=== PATIENT | male | born 1940 | race Caucasian/White ===

== ENCOUNTER 2017-08-16 11:40 | Inpatient (IN) | payer MEDICARE, BC ==
[~2017-08-16] VITALS: Ht 195.6 cm; Wt 115.0 kg
[~2017-08-16 11:40] MED LIST: ANTIVERT 25MG25 MG PO; ASPIRIN 32325 MG/TAB PO; FLOMAX 0.40.4 MG/CAP PO; GLUCOSAMINE PO; MIDRIN CAPSULE1 CAP PO; MVI; NORVASC 5MG5 MG/TAB PO; Norvasc PO; PHENERGAN 25 TA25 MG PO; PHENERGAN W/CO120 M1 PO; PRILOSEC 20MG20 MG PO; TAMIFLU 75MG75 MG PO; TOPROL XL 25MG25 MG PO; TYLENOL 325MG325 MG PO; XARELTO10 MG PO; ZANTAC; ZITHROMAX500 M2 PO
[2017-10-17] MEDS ORDERED: NORVASC 5MG5 MG/TAB PO (09:20)
[2017-10-17] MEDS ORDERED: FLOMAX 0.40.4 MG/CAP PO (09:20)
[2017-10-17] MEDS ORDERED: ASPI325T6 PO (09:21)
[2017-10-17] MEDS ORDERED: TOPROL XL 50MG50 MG PO (09:21)
[2017-10-17] MEDS ORDERED: TURMERIC500 MG PO (09:22)
[2017-10-17] MEDS ORDERED: OMEGA-3 1000 MG1 CAP PO (09:22)
[2017-10-18] VITALS (11 sets, daily range): BP systolic 95–140; BP diastolic 45–74; PULSE 45–71; TEMP 97.2–98.4
[2017-10-19 00:41] VITALS: BP 120/58; PULSE 60; TEMP 98.4
[2017-10-19 04:15] VITALS: BP 125/58; PULSE 56; TEMP 97.9
[2017-10-19 07:35] VITALS: BP 117/67; PULSE 55; TEMP 97.9
[2017-10-19 07:50] LABS: HEMATOCRIT 41.7 % (42.0-52.0)
[2017-10-19 11:15] VITALS: BP 120/65; PULSE 98; TEMP 98.2
[2017-10-19 15:14] VITALS: BP 104/61; PULSE 60; TEMP 97.7
[2017-10-19 19:34] VITALS: BP 115/58; PULSE 57; TEMP 98.1
[2017-10-20 03:59] VITALS: BP 119/72; PULSE 54; TEMP 98
[2017-10-20] MEDS ORDERED: ASPI325T6 PO (06:42)
[2017-10-20] MEDS ORDERED: ROXICODONE 55 MG/TAB PO (06:42)
[2017-10-20] MEDS ORDERED: NORCO 325 MG-7.1 TAB PO (06:43)
[2017-10-20 07:22] VITALS: BP 130/77; PULSE 60; TEMP 99.2
[2017-10-20 11:31] VITALS: BP 126/63; PULSE 57; TEMP 97.6
== END 2017-10-20 17:42 | disposition home or self-care (01) | DRG 470 ==
LOC: JCC 10-18 06:40
PROVIDERS: Orthopaedic Surgery
PROC: 0SRC0J9 Replacement of Right Knee Joint with Synthetic Substitute, Cemented, Open Approach (ICD-10-PCS; principal; 2017-10-18 10:15)
DX: M17.11 Unilateral primary osteoarthritis, right knee (principal)
CPT/HCPCS: A4314; A9284; C1713; C1776; J0690; J1100; J1885; J2250; J2405; J2704; J3010; J7120

== ENCOUNTER → 2017-10-05 | Outpatient (CLI) | payer MEDICARE, BC ==
[2017-10-05 12:26] LABS: HIV 1/2 Antibodies Non-Reactive; HIV-1p24 Antigen Non-Reactive
== END ==
LOC: COL.LAB 11:07
PROVIDERS: Orthopaedic Surgery
DX: Z01.812 Encounter for preprocedural laboratory examination (principal); M17.11 Unilateral primary osteoarthritis, right knee

== ENCOUNTER 2019-01-08 09:40 | Day surgery (SDC) | payer MEDICARE, BC ==
[~2019-01-08] VITALS: Ht 195.6 cm; Wt 122.4 kg
[2019-01-08] VITALS (8 sets, daily range): BP systolic 103–132; BP diastolic 68–86; PULSE 55–70; TEMP 98.3
[~2019-01-08 09:40] MED LIST changes: +ASPI325T6 PO; +NORCO 325 MG-7.1 TAB PO; +OMEGA-3 1000 MG1 CAP PO; +ROXICODONE 55 MG/TAB PO; +TOPROL XL 50MG50 MG PO; +TURMERIC500 MG PO
[2019-01-08] MEDS ORDERED: XARELTO20 MG PO (09:58)
[2019-01-08] MEDS ORDERED: PRILOSEC 20MG20 MG PO (10:00)
[2019-01-08] MEDS ORDERED: MEN'S ONE DAIL1 EACH PO (10:01)
[2019-01-08 10:45] LABS: HEMATOCRIT 47.9 % (42.0-52.0); HEMOGLOBIN 15.7 g/dl (13.5-18.0); MEAN CELL VOLUME 95 fl (80.0-100.0); MEAN CORPUSCULAR HEMOGLOBIN 31 pg (27.0-31.0); MEAN CORPUSCULAR HGB CONC 33 g/dl (33.0-37.0); MEAN PLATELET VOLUME 9.3 fl (7.4-10.4); PLATELET COUNT 229 K/mm3 (130-400); RED BLOOD COUNT 5.03 M/mm3 (4.20-5.60); REDCELL DISTRIBUTION WIDTH-CV 12.4 % (11.5-14.5)
[2019-01-08 10:50] LABS: INR 1.5 (0.8-3.0); PROTHROMBIN TIME 17.8 SECONDS (9.7-12.8)
[2019-01-08] MEDS ORDERED: VITAMINC1000TA PO (11:11)
[2019-01-08] MEDS ORDERED: OMEGA-3 1000 MG1 CAP PO (11:21)
[2019-01-08] MEDS ORDERED: ADVIL200 MG PO (11:21)
[2019-01-08] MEDS ORDERED: TRIAMCINOLONE A15 G3 TP (11:22)
[2019-01-08 11:47] LABS: CALCIUM 9.1 mg/dL (8.4-10.2); CREATININE, serum 1.06 (0.66-1.25); MAGNESIUM 1.8 mg/dL (1.6-2.3); POTASSIUM 4.3 mmol/L (3.4-5.0)
[2019-01-08 12:16] LABS: THYROID STIMULATING HORMONE 3.53 uIU/mL (0.465-4.680)
--- NOTE | 2019-01-08 12:30 | NUR ---
Report from Alvin,Rn.Pt resting with eyes closed,respirations even and unlabored.pt opens eyes and answers appropriately to verbal stimuli.
--- NOTE | 2019-01-08 13:35 | NUR ---
Per pt "my head doesnt feel quite right yet." Encouraged pt to stay for a little while.Pt ordering food, at bedside.VSS,Will continue to monitor.
--- NOTE | 2019-01-08 14:45 | NUR ---
Discharge instructions given to pt.pt verbalizes understanding.INT removed,catheter tip intact.Pt escorted out via wheelchair.
== END 2019-01-08 15:06 | disposition home or self-care (01) ==
LOC: COL.CAR 09:40
PROVIDERS: Internal Medicine Cardiovascular Disease
DX: I48.0 Paroxysmal atrial fibrillation (principal); K21.9 Gastro-esophageal reflux disease without esophagitis; I10 Essential (primary) hypertension; I34.0 Nonrheumatic mitral (valve) insufficiency; N40.0 Benign prostatic hyperplasia without lower urinary tract symptoms; R73.9 Hyperglycemia, unspecified; E78.5 Hyperlipidemia, unspecified; I48.3 Typical atrial flutter; G43.909 Migraine, unspecified, not intractable, without status migrainosus; Z79.82 Long term (current) use of aspirin; Z96.651 Presence of right artificial knee joint; Z88.1 Allergy status to other antibiotic agents; Z88.6 Allergy status to analgesic agent; Z87.891 Personal history of nicotine dependence; Z80.9 Family history of malignant neoplasm, unspecified; Z83.3 Family history of diabetes mellitus; Z84.1 Family history of disorders of kidney and ureter; Z82.3 Family history of stroke
CPT/HCPCS: J2704; J7120

== ENCOUNTER 2019-01-23 09:15 | Day surgery (SDC) | payer MEDICARE, BC ==
[~2019-01-23] VITALS: Ht 195.8 cm; Wt 121.0 kg
[~2019-01-23 09:15] MED LIST changes: +ADVIL200 MG PO; +MEN'S ONE DAIL1 EACH PO; +TRIAMCINOLONE A15 G3 TP; +VITAMINC1000TA PO; +XARELTO20 MG PO
[2019-01-23 10:00] VITALS: BP 125/74; PULSE 50; TEMP 97.2
[2019-01-23 10:06] LABS: INR 1.5 (0.8-3.0); PROTHROMBIN TIME 18.2 SECONDS (9.7-12.8)
[2019-01-23 10:11] LABS: CALCIUM 9.4 mg/dL (8.4-10.2); CREATININE, serum 1.02 (0.66-1.25); POTASSIUM 4.4 mmol/L (3.4-5.0)
[2019-01-23] MEDS ORDERED: TOPROL XL 25MG25 MG PO (10:15)
[2019-01-23 11:04] LABS: HEMATOCRIT 50.1 % (42.0-52.0); HEMOGLOBIN 16.4 g/dl (13.5-18.0); MEAN CELL VOLUME 94 fl (80.0-100.0); MEAN CORPUSCULAR HEMOGLOBIN 31 pg (27.0-31.0); MEAN CORPUSCULAR HGB CONC 33 g/dl (33.0-37.0); PLATELET COUNT 221 K/mm3 (130-400); RED BLOOD COUNT 5.36 M/mm3 (4.20-5.60)
[2019-01-23] MEDS ORDERED: TAMBOCOR50 MG PO (12:05)
[2019-01-23 12:25] VITALS: BP 113/77; PULSE 57
--- NOTE | 2019-01-23 12:25 | NUR ---
EMILY/CV complete and report received from Celeste CAM from computer lab assistant. Pt resting well in bed, at bedside.
[2019-01-23 12:40] VITALS: BP 118/82; PULSE 62; TEMP 97.7
[2019-01-23 12:55] VITALS: BP 126/74; PULSE 55
[2019-01-23 13:10] VITALS: BP 120/71; PULSE 61
--- NOTE | 2019-01-23 13:10 | NUR ---
Pt has ambulated and al PO intake s n/v. PIV removed with catheter intact.
--- NOTE | 2019-01-23 13:20 | NUR ---
Pt discharged per w/c by nurse with .
== END 2019-01-23 14:57 | disposition home or self-care (01) ==
LOC: COL.CAR 09:15
PROVIDERS: Internal Medicine Cardiovascular Disease
DX: I48.91 Unspecified atrial fibrillation (principal); Z79.01 Long term (current) use of anticoagulants; I10 Essential (primary) hypertension; I34.0 Nonrheumatic mitral (valve) insufficiency; Z79.899 Other long term (current) drug therapy; Z80.8 Family history of malignant neoplasm of other organs or systems; Z83.3 Family history of diabetes mellitus; Z82.3 Family history of stroke; Z84.89 Family history of other specified conditions; Z87.891 Personal history of nicotine dependence; Z96.651 Presence of right artificial knee joint; Z88.8 Allergy status to other drugs, medicaments and biological substances; K21.9 Gastro-esophageal reflux disease without esophagitis; E78.5 Hyperlipidemia, unspecified; G47.33 Obstructive sleep apnea (adult) (pediatric); G47.00 Insomnia, unspecified; Z79.82 Long term (current) use of aspirin; E66.01 Morbid (severe) obesity due to excess calories; Z68.34 Body mass index [BMI] 34.0-34.9, adult
CPT/HCPCS: J2704; J7120

== ENCOUNTER 2020-10-12 03:03 | Emergency (ER) | payer MEDICARE, BC ==
[~2020-10-12] VITALS: Ht 195.6 cm; Wt 122.7 kg
[~2020-10-12 03:03] MED LIST changes: +TAMBOCOR50 MG PO
[2020-10-12 03:06] VITALS: TEMP 98.5
[2020-10-12 03:21] LABS: BASO # 0.1 (0.0-0.2); BASO % 0.6 % (0.0-2.0); EOS # 0.1 (0.0-0.7); EOS % 1.4 % (0-4.0); GRAN # 6.8 (1.4-6.5); GRAN % 79.4 % (42.2-75.2); HEMATOCRIT 47.2 % (42.0-52.0); HEMOGLOBIN 15.6 g/dl (13.5-18.0); LYMPH # 0.8 (1.2-3.4); LYMPH % 9.4 % (20.0-51.0); MEAN CELL VOLUME 96 fl (80.0-100.0); MEAN CORPUSCULAR HEMOGLOBIN 32 pg (27.0-31.0); MEAN CORPUSCULAR HGB CONC 33 g/dl (33.0-37.0); MEAN PLATELET VOLUME 9.2 fl (7.4-10.4); MONO # 0.8 (0.1-0.6); PLATELET COUNT 207 K/mm3 (130-400); RED BLOOD COUNT 4.91 M/mm3 (4.20-5.60); REDCELL DISTRIBUTION WIDTH-CV 12.3 % (11.5-14.5)
[2020-10-12 03:32] LABS: ALANINE AMINOTRANSFERASE 19 U/L (4-49); ALKALINE PHOSPHATASE 76 U/L (50-136); ANION GAP 3 mmol/L (7-16); AST,SGOT 24 U/L (15-37); BILIRUBIN,TOTAL 0.5 mg/dL (0.0-1.0); BLOOD UREA NITROGEN 14 mg/dL (9-20); CALCIUM 9.2 mg/dL (8.4-10.2); CARBON DIOXIDE 26 mmol/L (22-30); CHLORIDE 107 mmol/L (98-107); CREATININE, serum 1.01 (0.66-1.25); GLUCOSE 123 mg/dL (74-106); POTASSIUM 3.9 mmol/L (3.4-5.0); SODIUM 137 mmol/L (137-145); TOTAL PROTEIN 7.2 gm/dL (6.4-8.2)
[2020-10-12 03:46] LABS: TROPONIN-I < 0.012 ng/mL (0.000-0.035)
[2020-10-12 08:09] VITALS: BP 141/73; PULSE 76
== END 2020-10-12 08:09 | disposition home or self-care (01) ==
LOC: COL.ER 03:03
PROVIDERS: Emergency Medicine
DX: R07.9 Chest pain, unspecified (principal); I10 Essential (primary) hypertension; I48.91 Unspecified atrial fibrillation; K21.9 Gastro-esophageal reflux disease without esophagitis; E66.9 Obesity, unspecified; Z87.891 Personal history of nicotine dependence; Z68.32 Body mass index [BMI] 32.0-32.9, adult; Z79.01 Long term (current) use of anticoagulants; Z79.899 Other long term (current) drug therapy